=== PATIENT | male | born 1945 | race American Indian/Alaskan Native ===

== ENCOUNTER 2020-09-26 09:25 | Outpatient (CLI) | payer MEDICARE ==
--- NOTE | 2020-09-26 10:40 | Cat Scan Report ---
CT CERVICAL SPINE: 09/26/2020 INDICATION / CLINICAL INFORMATION: OTHER SPECIFIED FORMS OF TREMOR,DISEASE OF THE NERVOUS SYSTEM. COMPARISON: None available. FINDINGS: CT images of the cervical spine were obtained. Images are evaluated in the axial, coronal, and sagitt al planes. There is no evidence of acute osseous abnormality. Reversal of cervical lordosis is centered at the C5-6 level. There is no evidence of narrowing of the osseous canal. Degenerative disc space narrowing and osteophyte formation is present throughout the cervical spine. Right-sided foraminal narrowing is associated with disc centered osteophyte at the C5-6 and C6-7 leve ls. CRANIOCERVICAL JUNCTION: Unremarkable. PARASPINAL STRUCTURES: No significant abnormality. IMPRESSION: No acute abnormality. Degenerative changes as described above. All CT scans at this location are performed using dose reduction to ALARA by means of automated expos ure control. Signer Name: Rocky Guerrero MD Signed: 09/26/2020 10:35 AM Workstation Name: [id number]
--- NOTE | 2020-09-26 10:46 | Cat Scan Report ---
CT THORACIC SPINE: 09/26/2020 INDICATION / CLINICAL INFORMATION: OTHER SPECIFIED FORMS OF TREMOR,DISEASE OF THE NERVOUS SYSTEM. COMPARISON: None available. FINDINGS: CT images of the thoracic spine were obtained. Images are evaluated in the axial, coronal, and sagitt al planes. There is no evidence of acute abnormality. Vertebral body height and alignment is well preserved. There is no evidence of osseous canal or foraminal narrowing. PARASPINAL STRUCTURES: No significant abnormality. IMPRESSION: No significant abnormality All CT scans at this location are performed using dose reduction to ALARA by means of automated expos ure control. Signer Name: Rocky Guerrero MD Signed: 09/26/2020 10:41 AM Workstation Name: [id number]
--- NOTE | 2020-09-26 14:06 | Ultrasound Report ---
ULTRASOUND TESTICULAR DOPPLER COMPLETE HISTORY: Other chronic pain, chronic scrotal pain TECHNIQUE: Grayscale ultrasound with color and spectral Doppler imaging COMPARISON: None. FINDINGS: The right testicle measures 3.5 x 1.6 x 2.3 cm. The left testicle measures 3.7 x 1.9 x 2.8 cm. Both testicles demonstrate a heterogeneous echotexture but no evidence for cyst, mass or calcific ations. Spectral Doppler waveforms demonstrate arterial flow bilaterally. A tiny 2 mm left epididymal head cyst is identified. The epididymides are unremarkable otherwise. No significant hydrocele or va ricocele. IMPRESSION: Tiny left epididymal cyst, otherwise, unremarkable exam. Signer Name: Hi Kellogg Jr, MD Signed: 09/26/2020 2:02 PM Workstation Name: [id number]
== END 2020-09-26 09:26 | disposition home or self-care (01) ==
LOC: US 09:25
PROVIDERS: ATTEND Internal Medicine Hematology & Oncology
DX: M47.814 Spondylosis without myelopathy or radiculopathy, thoracic region (principal); M48.04 Spinal stenosis, thoracic region; M25.78 Osteophyte, vertebrae; N50.3 Cyst of epididymis; G25.2 Other specified forms of tremor; M54.2 Cervicalgia
CPT/HCPCS: 72125; 72128; 93975

== ENCOUNTER 2021-02-15 15:30 | Outpatient (CLI) | payer MEDICARE ==
--- NOTE | 2021-02-15 17:22 | XRay Report ---
CHEST 2 VIEWS INDICATION / CLINICAL INFORMATION: COUGH/SOB. COMPARISON: None available. FINDINGS: SUPPORT DEVICES: None. HEART / MEDIASTINUM: No significant abnormality. LUNGS / PLEURA: No significant pulmonary or pleural abnormality. No pneumothorax. ADDITIONAL FINDINGS: No significant additional findings. IMPRESSION: 1. No acute findings. Signer Name: Duke Moody MD Signed: 02/15/2021 5:17 PM Workstation Name: [id number]
== END 2021-02-15 15:31 | disposition home or self-care (01) ==
LOC: XRAY 15:30
PROVIDERS: ATTEND Internal Medicine Hematology & Oncology
DX: R05.9 Cough, unspecified (principal); R06.02 Shortness of breath
CPT/HCPCS: 71046

== ENCOUNTER 2021-12-11 10:12 | Outpatient (CLI) | payer MEDICARE ==
--- NOTE | 2021-12-11 12:04 | XRay Report ---
Sinuses 4 views INDICATION: Sinus congestion IMPRESSION: No evidence of acute sinusitis. Signer Name: Federico Thomas MD Signed: 12/11/2021 11:59 AM Workstation Name: [id number]
--- NOTE | 2021-12-11 12:04 | XRay Report ---
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 Tiny bilateral elbow effus ions present. Signer Name: Federico Thomas MD Signed: 12/11/2021 12:00 PM Workstation Name: [email or web address]
== END 2021-12-11 10:13 | disposition home or self-care (01) ==
LOC: XRAY 10:12
DX: M19.022 Primary osteoarthritis, left elbow (principal); M19.021 Primary osteoarthritis, right elbow; M25.422 Effusion, left elbow; M25.421 Effusion, right elbow; R09.81 Nasal congestion
CPT/HCPCS: 70220